=== PATIENT | male | born 1945 | race Native Hawaiian/Other Pacific Islander ===

== ENCOUNTER 2017-10-08 11:02 | Outpatient (CLI) | payer OTHER, BC ==
[2017-10-08 12:40] LABS: POTASSIUM 4.9 mmol/L (3.6-5.2)
== END 2017-10-08 21:54 | disposition home or self-care (01) ==
LOC: LABW 11:02
PROVIDERS: Internal Medicine
DX: E87.5 Hyperkalemia (principal)
CPT/HCPCS: 36415; 80053; 81000; 82533; 82550

== ENCOUNTER 2022-06-18 09:06 | Outpatient (CLI) | payer BC | END 2022-06-18 19:45 | disposition home or self-care (01) | LOC: LABW 09:06 | PROVIDERS: ATTEND Neurological Surgery | DX: M47.27 Other spondylosis with radiculopathy, lumbosacral region (principal); M51.36 Other intervertebral disc degeneration, lumbar region; M43.07 Spondylolysis, lumbosacral region | CPT/HCPCS: 36415; 82565; 84520 ==